=== PATIENT | male | born 1975 | race Caucasian/White ===

== ENCOUNTER 2022-02-13 05:24 | Day surgery (SDC) | payer BC, OTHER ==
[2022-02-13] MEDS ORDERED: Midazolam 1 MG/ML 2 ML SDV IV ONE ×7 (05:25→06:50)
[2022-02-13] MEDS ORDERED: fentaNYL 100 MCG/2 ML SDV IV ONE ×5 (05:25→06:52)
[2022-02-13] MEDS ORDERED: Dextrose 5%-0.45% NaCl 1,000 ML IV SCH (05:30)
[2022-02-13] MEDS ORDERED: Midazolam 1 MG/ML 2 ML SDV ONE (06:07)
[2022-02-13] MEDS ORDERED: fentaNYL 100 MCG/2 ML SDV ONE (06:07)
== END 2022-02-13 08:16 | disposition home or self-care (01) ==
LOC: DL.ENDO 05:24
PROVIDERS: ATTEND Internal Medicine Gastroenterology
DX: Z12.11 Encounter for screening for malignant neoplasm of colon (principal); D12.3 Benign neoplasm of transverse colon; E66.09 Other obesity due to excess calories; I10 Essential (primary) hypertension; E78.5 Hyperlipidemia, unspecified; Z90.49 Acquired absence of other specified parts of digestive tract; Z68.32 Body mass index [BMI] 32.0-32.9, adult
CPT/HCPCS: 45385; J2250; J3010; J7042

== ENCOUNTER 2022-05-05 12:42 | Emergency (ER) | payer OTHER ==
[2022-05-05] MEDS ORDERED: Sodium Chloride 0.9% 10 ML Syringe FLUSH PRN (12:48)
[2022-05-05 13:39] LABS: ANION GAP 11.6 mEq/L (7-13)
== END 2022-05-05 14:27 | disposition home or self-care (01) ==
LOC: DL.ED 12:42
DX: M54.6 Pain in thoracic spine (principal); I10 Essential (primary) hypertension; E66.9 Obesity, unspecified; Z68.33 Body mass index [BMI] 33.0-33.9, adult; Z86.16 Personal history of COVID-19; Z79.899 Other long term (current) drug therapy
CPT/HCPCS: 36415; 71045; 80053; 82150; 83605; 83690; 83735; 83880; 84443; 84484; 85025; 85379; 85610; 86140; 93005; 93010; 99284; 99285

== ENCOUNTER 2023-06-17 21:22 | Emergency (ER) | payer OTHER ==
[2023-06-17] MEDS: Sodium Chloride 0.9% 1,000 ML IV ONE (22:06)
[2023-06-17 22:09] LABS: BASOPHILS PERCENT AUTO 0.1 % (0.0-1.0); EOSINOPHILS PERCENT AUTO 1.8 % (1.0-3.0); HEMATOCRIT 43.5 % (40.0-54.0); HEMOGLOBIN 15.4 g/dL (14.0-18.0); LYMPHOCYTES PERCENT AUTO 39.8 % (20.5-50.1); MEAN CORPUSCULAR HEMOGLOBIN 30.1 pg (27.0-34.0); MEAN CORPUSCULAR HGB CONC 35.4 g/dL (33.0-35.0); MONOCYTES PERCENT AUTO 9.1 % (2-8); NEUTROPHILS PERCENT AUTO 49.2 % (42.2-75.2); PLATELET COUNT,PLT 192 10^3/uL (150-450); RED BLOOD CELL COUNT 5.12 10^6/uL (4.6-6.2); WHITE BLOOD CELL COUNT,WBC 8.7 10^3/uL (5.0-10.0)
[2023-06-17 22:31] LABS: A/G RATIO 1.2; ALBUMIN 3.9 g/dL (3.4-5.0); ANION GAP 15.8 mEq/L (7-13); BILIRUBIN TOTAL 0.7 mg/dL (0.2-1.0); BUN/CREATININE RATIO 14.5 (No establ ref range); CALCIUM 8.8 mg/dL (8.5-10.1); CREATININE 1.1 mg/dL (0.70-1.30); EST CRCL DRUG DOSING (CG) 82.95 mL/min; MAGNESIUM 1.7 mg/dL (1.8-2.4); POTASSIUM,K 3.8 mmol/L (3.5-5.1); PROTEIN TOTAL,TP 7.2 g/dL (6.4-8.2)
[2023-06-17 22:46] LABS: APPEARANCE,URINE CLEAR (CLEAR); BILIRUBIN,URINE NEGATIVE (NEGATIVE); COLOR,URINE YELLOW (YELLOW); GLUCOSE,URINE NEGATIVE (NEGATIVE); KETONES,URINE NEGATIVE (NEGATIVE); LEUKOCYTE ESTERASE,URINE NEGATIVE (NEGATIVE); NITRITE,URINE NEGATIVE (NEGATIVE); OCCULT BLOOD,URINE NEGATIVE (NEGATIVE); PROTEIN,URINE NEGATIVE (NEGATIVE); UROBILINOGEN,URINE 0.2 mg/dL (0.2-1.0)
[2023-06-18] MEDS: Magnesium Sulfate/Water 2 GM in Premix Bag 1 BAG IV ONE (00:49)
[2023-06-18] MEDS: cloNIDine 0.1 MG Tab PO ONE (00:50)
[2023-06-18] MEDS: Morphine 2 MG/ML SYRINGE IVPUSH ONE ×2 (00:50→01:41)
[2023-06-18] MEDS: Ondansetron 4 MG/2 ML SDV IVPUSH ONE (00:50)
== END 2023-06-18 02:48 | disposition home or self-care (01) ==
LOC: DL.ED 21:22
DX: I10 Essential (primary) hypertension (principal); R20.0 Anesthesia of skin; E86.9 Volume depletion, unspecified; R79.89 Other specified abnormal findings of blood chemistry; E66.9 Obesity, unspecified; Z86.16 Personal history of COVID-19; Z68.29 Body mass index [BMI] 29.0-29.9, adult
CPT/HCPCS: 36415; 70450; 72131; 80053; 81003; 82550; 83735; 84484; 85025; 93005; 93010; 96361; 96365; 96366; 96375; 96376; 99284; 99284-25; A9270-GY; J2270; J2405; J3475; J7030

== ENCOUNTER 2023-06-20 23:13 | Emergency (ER) | payer OTHER ==
[2023-06-20 23:55] LABS: BASOPHILS PERCENT AUTO 0.1 % (0.0-1.0); EOSINOPHILS PERCENT AUTO 1.6 % (1.0-3.0); HEMATOCRIT 45.3 % (40.0-54.0); HEMOGLOBIN 16.1 g/dL (14.0-18.0); LYMPHOCYTES PERCENT AUTO 37.8 % (20.5-50.1); MEAN CORPUSCULAR HGB CONC 35.5 g/dL (33.0-35.0); MEAN CORPUSCULAR VOLUME 84.4 fL (80-100); MONOCYTES PERCENT AUTO 8.5 % (2-8); PLATELET COUNT,PLT 202 10^3/uL (150-450); RED BLOOD CELL COUNT 5.37 10^6/uL (4.6-6.2); WHITE BLOOD CELL COUNT,WBC 8.2 10^3/uL (5.0-10.0)
[2023-06-21] MEDS: Morphine 2 MG/ML SYRINGE IVPUSH ONE ×2 (00:07→01:40)
[2023-06-21] MEDS: Ondansetron 4 MG/2 ML SDV IVPUSH ONE (00:07)
[2023-06-21] MEDS: cloNIDine 0.1 MG Tab PO ONE (00:08)
[2023-06-21 00:18] LABS: A/G RATIO 1.2; ANION GAP 15.7 mEq/L (7-13); BILIRUBIN TOTAL 0.6 mg/dL (0.2-1.0); BUN/CREATININE RATIO 21.8 (No establ ref range); CALCIUM 9.2 mg/dL (8.5-10.1); CREATININE 1.01 mg/dL (0.70-1.30); EST CRCL DRUG DOSING (CG) 90.35 mL/min; MAGNESIUM 1.8 mg/dL (1.8-2.4); POTASSIUM,K 3.7 mmol/L (3.5-5.1); PROTEIN TOTAL,TP 7.4 g/dL (6.4-8.2)
[2023-06-21 00:45] LABS: APPEARANCE,URINE CLEAR (CLEAR); BILIRUBIN,URINE NEGATIVE (NEGATIVE); COLOR,URINE YELLOW (YELLOW); GLUCOSE,URINE NEGATIVE (NEGATIVE); KETONES,URINE NEGATIVE (NEGATIVE); LEUKOCYTE ESTERASE,URINE NEGATIVE (NEGATIVE); NITRITE,URINE NEGATIVE (NEGATIVE); OCCULT BLOOD,URINE NEGATIVE (NEGATIVE); PROTEIN,URINE NEGATIVE (NEGATIVE); UROBILINOGEN,URINE 0.2 mg/dL (0.2-1.0)
[2023-06-21] MEDS: cloNIDine 0.1 MG Tab ONE (00:57)
[2023-06-21 01:27] LABS: AMPHETAMINES,URINE NEGATIVE (NEGATIVE); BARBITURATES,URINE NEGATIVE (NEGATIVE); BENZODIAZEPINE,URINE NEGATIVE (NEGATIVE); MDMA (ECSTASY), URINE NEGATIVE (NEGATIVE); METHADONE,URINE NEGATIVE (NEGATIVE); METHAMPHETAMINES,URINE NEGATIVE (NEGATIVE); OPIATES,URINE NEGATIVE (NEGATIVE); OXYCODONE,URINE NEGATIVE (NEGATIVE); PHENCYCLIDINE,URINE NEGATIVE (NEGATIVE); TCA,URINE POSITIVE (NEGATIVE)
[2023-06-21 01:58] LABS: CORONAVIRUS COVID-19 NAA NEGATIVE (NEGATIVE); INFLUENZA A NAA NEGATIVE (NEGATIVE); INFLUENZA B NAA NEGATIVE (NEGATIVE); RESPIRATORY SYNCYTIAL VIR NAA NEGATIVE (NEGATIVE)
== END 2023-06-21 02:35 | disposition home or self-care (01) ==
LOC: DL.ED 23:13
DX: I10 Essential (primary) hypertension (principal); M79.10 Myalgia, unspecified site; Z79.899 Other long term (current) drug therapy; Z86.16 Personal history of COVID-19
CPT/HCPCS: 0241U; 36415; 70450; 71045; 80053; 80305; 81003; 82550; 83690; 83735; 84484; 85025; 85379; 85651; 86140; 93005; 96374; 96375; 96376; 99284; A9270; J2270; J2405